=== PATIENT | female | born 1940 | race Caucasian/White ===

== ENCOUNTER 2016-10-13 08:41 | Day surgery (SDC) | payer MEDICARE, OTHER ==
[~2016-10-13] VITALS: Ht 167.6 cm; Wt 68.0 kg
[~2016-10-13 08:41] MED LIST: 0.9% Sodium Chloride 1,000 ML IV SCH; CALC600T12 PO; CHOL200025 PO; OMEG1000 PO; Sodium Chloride LOK Flush 10 mL Syringe IV PRN; VIT1TABL83 PO; fentaNYL-PF 50 mCg/mL 2 mL Inj IVPUSH PRN
[2016-10-13 08:59] VITALS: BP 120/76; PULSE 73; RESP 14; O2SAT 98
[2016-10-13 10:29] VITALS: BP 112/65; PULSE 78; RESP 16; O2SAT 94
--- NOTE | 2016-10-13 10:29 | PCM.ENDEGD ---
EGD Date of Service: Oct 13, 2016 Physician Arnold Guerrero MD Indication for Procedure Reflux and dysphagia Post Procedure Dx & Findings: Esophageal ulcer with peptic stricture and gastric ulcers and erosions. Procedure Esophagogastroduodenoscopy PROCEDURE IN DETAIL: The patient was placed in left lateral decubitus position. Bite block was placed. Scope lubricated, placed in posterior pharynx, passed through the cricopharyngeus and esophagus, slowly advanced the entire length of the gastric pouch, pylorus was identified, scope passed through the pylorus and descending portion of duodenum, withdrawn in the antrum, retroflexed upon itself for view of fundus and cardia. Scope was then withdrawn through the oropharynx. Esophagus appeared normal until we reached 37 cm. 3 mm clean base ulcer noted as well as a peptic stricture. Scope easily went back and forth. The lumen size is about 1.2-1.3 cm. Several biopsies obtained at the site using cold forceps. Hiatal hernia noted 5 cm. Retroflexion was done in the stomach. Stomach was easily inflatable and deflated wheezing air. Antrum showed several gastric erosion and one ulcer 5 mm in size. Multiple biopsies obtained using cold forcep of the ulcer and erosions. Advanced to distal duodenum. Duodenum showed normal villous structures without any ulcers masses or erosions. Normal duodenal folds noted. Impression Gastric erosion ulcer status post biopsies. Esophageal ulcer with peptic stricture status post biopsy. Recommendation Prilosec 20 mg twice a day indefinitely Follow up in GI clinic in 6 weeks. Presedation Assessment Risks and Benefits Informed consent was obtained from the patient after all risks and benefits including but not limited to drug reaction, infection, pain, bleeding, perforation, as well as alternatives were discussed. Patient monitoring Continuous pulse oximetry, cardiac monitoring, blood pressure monitoring, IV access, and oxygen at 2L per nasal cannula. Periprocedural Fentanyl: Fentanyl 100mcg Incrementally Midazolam: Midazolam 4mg Incrementally Complications There were no periprocedural complications identified. Post Procedure Plan Post Procedure Recommendations 1. Restrict activities today. 2. Resume normal activities in the morning. 3. Resume medications. 4. GERD behavioral modification: - Avoid fatty, acidic, spicy, large meals - Do not lie down after meals - Do not eat or drink anything for at least 2 1/2 hours before going to bed at night - Discontinue tobacco and alcohol - Decrease or avoid caffeine - Avoid chocolate and mints - Decrease weight - Avoid aspirin and non steroidal anti-inflammatory agents (NSAID) such as Aleve, Advil, Mobic, Naproxen, Ibuprofen, etc 5. Add proton pump inhibitor. Take 30 minutes before 1st meal of the day. 6. Patient informed of normal post procedure side effects as bloating, drowsiness, blood streaking in the stool 7. If gastric biopsy reveal H.pylori, continue with appropriate treatment 8. If small bowel biopsy reveals celiac, continue with appropriate treatment 9. Please don't hesitate to call me with any questions Arnold Guerrero MD Oct 13, 2016 10:29
[2016-10-13 10:39] VITALS: BP 103/56; PULSE 58; RESP 16; O2SAT 96
[2016-10-13 10:49] VITALS: BP 99/68; PULSE 75; RESP 16; O2SAT 97
--- NOTE | 2016-10-15 13:45 | PATH ---
SURGICAL PATHOLOGY Attending Physician:Arnold Guerrero M.D. CASE STATUS: Signed Out PATIENT NAME: VANDA HUNTER PID: [id number] : 1940 DATE COLLECTED:10/13/2016 20:37 SPECIMEN: 1: Gastric, Biopsy 2: Esophagus, Biopsy CLINICAL HISTORY: 1). GASTRIC ULCER 2). DISTAL ESOPHAGUS ULCER FINAL DIAGNOSIS: 1. Gastric Ulcer Biopsy: Mild chronic gastritis involving antral mucosa with no definite ulcer identified. Negative for evidence of Helicobacter. Negative for intestinal metaplasia. Negative for dysplasia and malignancy. 2. Distal Esophagus Ulcer Biopsy: Squamous mucosa and gastric cardia-type mucosa and necrotic debris consistent with ulceration. Negative for viral inclusions. Special PASD stain negative for fungi. Negative for specialized metaplasia of Hartman's type esophagus. Negative for dysplasia and malignancy. Eosinophils are not increased. ICD10 K22.10 GROSS DESCRIPTION: The specimen is received in two formalin filled containers labeled with the patient's name. 1). Specimen a sublabeled "gastric ulcer" and consists of 3 portions of tissue which aggregate to 0.3 x 0.3 x 0.2 CM. The specimen is entirely submitted in cassette 1A. 2). The specimen is sublabeled "distal esophagus ulcer" and consists of 2 portions of tissue which aggregate to 0.3 x 0.3 x 0.2 CM. The specimen is entirely submitted in cassette 2A. 10/13/2016 [facility] ICD-9 CODES: CPT CODES: 1: 19354 2: 88805, 52291 Electronically Signed Out Maco Tenorio MD [facility] [address], [place] [address] Technical component performed at [facility], [facility] [address], [place], [address]
== END 2016-10-13 23:59 | disposition home or self-care (01) ==
LOC: MERGE 08:41 → END 23:59
PROVIDERS: ATTEND Internal Medicine
DX: K22.10 Ulcer of esophagus without bleeding (principal); K29.50 Unspecified chronic gastritis without bleeding; K31.89 Other diseases of stomach and duodenum
CPT/HCPCS: 43239; 88305; 88312; G0500; J2250; J3010; J7030